=== PATIENT | male | born 1995 | race Caucasian/White ===

== ENCOUNTER 2018-07-03 19:12 | Emergency (ER) | payer SELFPAY ==
[2018-07-03] MEDS ORDERED: ASPIRIN 81 MG TABLET, CHEWABLE PO ONE (19:36)
--- NOTE | 2018-07-03 19:38 | ER Document Report ---
ED Medical Screen (RME) - General Chief Complaint: Chest Pain Stated Complaint: CHEST PAIN Time Seen by Provider: 07/03/18 19:36 Mode of Arrival: Ambulatory Information source: Patient Notes: Patient is complaining of chest pain which started abruptly this afternoon. Patient said he also thinks he has anxiety. He denies any nausea, vomiting or diarrhea. He was given aspirin by EMS prior to presentation in the ED. I have greeted and performed a rapid initial assessment of this patient. A comprehensive ED assessment and evaluation of the patient, analysis of test results and completion of the medical decision making process will be conducted by additional ED providers. TRAVEL OUTSIDE OF THE [place] IN LAST 30 DAYS: No - Related Data Allergies/Adverse Reactions: No Known Allergies Allergy (Unverified 07/03/18 19:15) Past Medical History - Social History Chew tobacco use (# tins/day): No Frequency of alcohol use: None Drug Abuse: None Renal/ Medical History: Denies: Hx Peritoneal Dialysis Psychiatric Medical History: Reports: Hx Attention Deficit Hyperactivity Disorder Physical Exam - Vital signs Vitals: Temp Pulse Resp BP Pulse Ox 98.8 F 67 16 134/88 H 100 07/03/18 19:26 07/03/18 19:26 07/03/18 19:26 07/03/18 19:26 07/03/18 19:26 Course - Vital Signs Vital signs: Temp Pulse Resp BP Pulse Ox 98.8 F 67 16 134/88 H 100 07/03/18 19:26 07/03/18 19:26 07/03/18 19:26 07/03/18 19:26 07/03/18 19:26 Doctor's Discharge - Discharge Referrals: NEWTON DENIS MD [Primary Care Provider] - Follow up as needed
[2018-07-03 20:16] LABS: ABSOLUTE EOSINOPHILS # (AUTO) 0.1 10^3/uL (0.0-0.6); ABSOLUTE LYMPHOCYTES (AUTO) 2.3 10^3/uL (0.5-4.7); ABSOLUTE MONOCYTES (AUTO) 0.8 10^3/uL (0.1-1.4); ABSOLUTE NEUT (AUTO) 6.8 10^3/uL (1.7-8.2); BASOPHILS % (AUTO) 0.4 % (0-2); EOSINOPHILS % (AUTO) 1.2 % (0-6); HEMOGLOBIN 15.1 g/dL (13.5-17.0); LYMPHOCYTES % (AUTO) 22.9 % (13-45); MEAN CORPUSCULAR HEMOGLOBIN 31.5 pg (27.0-33.4); MEAN CORPUSCULAR HGB CONC 35.1 g/dL (32.0-36.0); MEAN CORPUSCULAR VOLUME 90 fl (80-97); MONOCYTES % (AUTO) 8.1 % (3-13); PLATELET COUNT 238 10^3/uL (150-450); RED CELL DISTRIBUTION WIDTH 12.8 % (11.5-14.0); SEGMENTED NEUTROPHILS % (AUTO) 67.4 % (42-78); TOTAL CELLS COUNTED % (AUTO) 100 %; WHITE BLOOD COUNT 10.1 10^3/uL (4.0-10.5)
[2018-07-03] MEDS ORDERED: NORMAL SALINE 1000 ML 1,000 ML IV ONE (20:16)
--- NOTE | 2018-07-03 20:17 | ER Document Report ---
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 He states he has had similar episodes in the past but not exactly. He denies any current symptoms. He denies syncope, vomiting, shortness of breath. Past medical history of ADHD, denies any other medications. He states, he denies any recreational drugs or alcohol. TRAVEL OUTSIDE OF THE [place] IN LAST 30 DAYS: No - Related Data Allergies/Adverse Reactions: No Known Allergies Allergy (Unverified 07/03/18 19:15) Past Medical History - General Information source: Patient - Social History Smoking Status: Current Every Day Smoker Chew tobacco use (# tins/day): No Frequency of alcohol use: None Drug Abuse: None Lives with: Family Family History: Reviewed & Not Pertinent Patient has suicidal ideation: No Patient has homicidal ideation: No Renal/ Medical History: Denies: Hx Peritoneal Dialysis Psychiatric Medical History: Reports: Hx Attention Deficit Hyperactivity Disorder Surgical Hx: Negative - Immunizations Immunizations up to date: Yes Hx Diphtheria, Pertussis, Tetanus Vaccination: Yes Review of Systems - Review of Systems Constitutional: No symptoms reported EENT: No symptoms reported Cardiovascular: See HPI Respiratory: No symptoms reported Gastrointestinal: No symptoms reported Genitourinary: No symptoms reported Male Genitourinary: No symptoms reported Musculoskeletal: See HPI Skin: No symptoms reported Hematologic/Lymphatic: No symptoms reported Neurological/Psychological: No symptoms reported Physical Exam - Vital signs Vitals: Temp Pulse Resp BP Pulse Ox 98.8 F 67 16 134/88 H 100 07/03/18 19:26 07/03/18 19:26 07/03/18 19:26 07/03/18 19:26 07/03/18 19:26 - Notes Notes: GENERAL: Alert, interacts well. No acute distress. Slightly tired in appearance with slight bags under his eyes. HEAD: Normocephalic, atraumatic. EYES: Pupils equal, round, and reactive to light. Extraocular movements intact. ENT: Oral mucosa slightly dry, tongue midline. Unremarkable oral pharyngeal exam. NECK: Full range of motion. Supple. Trachea midline. LUNGS: Clear to auscultation bilaterally, no wheezes, rales, or rhonchi. No respiratory distress. Mild soreness over the pectoralis muscles generally, otherwise nonspecific and unremarkable chest examination. HEART: Regular rate and rhythm. No murmur ABDOMEN: Soft, non-tender. Non-distended. Bowel sounds present in all 4 quadrants. EXTREMITIES: Moves all 4 extremities spontaneously. No edema, normal radial and dorsalis pedis pulses bilaterally. No cyanosis. BACK: no cervical, thoracic, lumbar midline tenderness. No saddle anesthesia, normal distal neurovascular exam. NEUROLOGICAL: Alert and oriented x3. Normal speech. [cranial nerves II through XII grossly intact]. PSYCH: Normal affect, normal mood. SKIN: Warm, dry, normal turgor. No rashes or lesions noted. Course - Re-evaluation Re-evalutation: EKG sinus rhythm with no T-wave inversions or ST segment changes in consecutive leads. Unremarkable RI interval and QTC. There is unremarkable. CBC, chemistry unremarkable except very mildly elevated CK which is consistent with patient's outside work/rescue efforts and soreness over his chest wall. Troponin is negative. Patient denies exertional drugs. He denies any current symptoms. His reported symptoms were vague. He is requesting to leave. Based on his history I do not suspect a dangerous arrhythmia, ACS, pulmonary embolism , or aortic dissection. No other concerning a normality is noted on workup. Patient was given IV fluids. Discussed cardiac follow-up, return precautions, patient states satisfaction and agreement with this plan, stable at time of discharge. - Vital Signs Vital signs: Temp Pulse Resp BP Pulse Ox 98.8 F 67 22 H 126/77 H 98 07/03/18 19:26 07/03/18 19:26 07/03/18 21:01 07/03/18 21:01 07/03/18 21:01 - Laboratory Result Diagrams: 07/03/18 19:53 07/03/18 19:53 Laboratory results interpreted by me: 07/03/18 19:53 Direct Bilirubin 0.5 H Creatine Kinase 175 H Total Protein 8.3 H Discharge - Discharge Clinical Impression: Chest tightness, Chest wall pain Condition: Stable Disposition: HOME, SELF-CARE Additional Instructions: Your EKG, laboratory workup, and chest x-ray do not show any concerning abnormality at this time. The exact cause of your symptoms is uncertain, could be anxiety, sometimes a combination of lack of sleep, dehydration, etc. Recommendation is to follow-up with your primary care provider and with cardiology for further evaluation and management. Return if you worsen including difficulty breathing, passing out, fever, severe pain, or any other concerning or worsening symptoms. Forms: Return to Work Referrals: QUYEN CALDERON MD [ACTIVE STAFF] - Follow up as needed
--- NOTE | 2018-07-03 20:19 | RADIOLOGY REPORT (SQ) ---
EXAM DESCRIPTION: CHEST SINGLE VIEW COMPLETED DATE/TIME: 07/03/2018 8:10 pm REASON FOR STUDY: chest pain COMPARISON: None. EXAM PARAMETERS: NUMBER OF VIEWS: One view. TECHNIQUE: Single frontal radiographic view of the chest acquired. RADIATION DOSE: NA LIMITATIONS: None. FINDINGS: LUNGS AND PLEURA: No opacities, masses or pneumothorax. No pleural effusion. MEDIASTINUM AND HILAR STRUCTURES: No masses. Contour normal. HEART AND VASCULAR STRUCTURES: Heart normal in size. Normal vasculature. BONES: No acute findings. HARDWARE: None in the chest. OTHER: No other significant finding. IMPRESSION: NO ACUTE RADIOGRAPHIC FINDING IN THE CHEST. TECHNICAL DOCUMENTATION: JOB ID: [id number] [employer]- All Rights Reserved Reading location - IP/workstation name: [email or web address]
[2018-07-03 20:36] LABS: ALANINE AMINOTRANSFERASE 68 U/L (21-72); ALKALINE PHOSPHATASE 82 U/L (38-126); ANION GAP 12 (5-19); ASPARTATE AMINO TRANSFERASE 48 U/L (17-59); BILIRUBIN,DIRECT 0.5 mg/dL (0.0-0.4); BILIRUBIN,TOTAL 0.9 mg/dL (0.2-1.3); BLOOD UREA NITROGEN 18 mg/dL (7-20); CARBON DIOXIDE 28 mmol/L (22-30); CHLORIDE 100 mmol/L (98-107); CREATINE KINASE 175 U/L (55-170); GLUCOSE 95 mg/dL (75-110); POTASSIUM 3.8 mmol/L (3.6-5.0); SODIUM 139.8 mmol/L (137-145); TOTAL PROTEIN 8.3 g/dL (6.3-8.2)
[2018-07-03 20:48] LABS: CREATINE KINASE MB 0.78 ng/mL (<4.55)
[2018-07-03 20:51] LABS: TROPONIN I < 0.012 ng/mL
[2018-07-03 21:07] VITALS: BP 126/77
--- NOTE | 2018-07-03 21:26 | EKG REPORT ---
SEVERITY:- NORMAL ECG - SINUS RHYTHM : Confirmed by: Venu Mansfield 03-Jul-2018 21:25:43
== END 2018-07-04 08:42 | disposition home or self-care (01) ==
LOC: ER 19:12
DX: R07.89 Other chest pain (principal); F17.200 Nicotine dependence, unspecified, uncomplicated
CPT/HCPCS: 36415; 71045; 80053; 82550; 82553; 84484; 85025; 93005; 93010; 99285